=== PATIENT | female | born 1965 | race Caucasian/White ===

== ENCOUNTER → 2018-05-30 | Day surgery (SDC) | payer BC ==
[~2018-05-30] MED LIST: Lactated Ringers 1,000 ML IV SCH; Propofol 200 MG/20 ML SDV IV ONE
--- NOTE | 2018-05-30 10:51 | OR ---
DATE OF OPERATION: 05/30/2018 PREOPERATIVE DIAGNOSIS: FOLLOWUP POLYPS. POSTOPERATIVE DIAGNOSIS: FOLLOWUP POLYPS. SURGEON: Edwin Tran MD PROCEDURE: FULL-LENGTH COLONOSCOPY WITH COLD FORCEPS POLYP REMOVAL X1. ANESTHESIA: MAC via [employer]. COMPLICATIONS: None. SPECIMEN: Hyperplastic polyp, distal sigmoid colon. FINDINGS: 1. Full-length colonoscopy. 2. Small flat, likely hyperplastic polyp, distal sigmoid colon. RECOMMENDATIONS: Followup colonoscopy in 5 years pending path report. INDICATIONS: The patient has a prior history of colonoscopy with polyps being removed. She is due for a 5-year followup scope. DESCRIPTION OF PROCEDURE: The patient was prepped and draped, placed in the left lateral decubitus position. A lubricated Olympus colonoscope was inserted and easily advanced to the cecum. Direct visualization of the ileocecal valve and appendiceal orifice was accomplished. The bowel prep was fine. Upon withdrawal of the scope, throughout the cecum, right transverse and descending colon, no abnormalities were seen. The sigmoid colon essentially was benign without any signs of vascular abnormality, colitis, bleeding sites, or diverticula. In the most distal portion of the sigmoid around 25 cm, the patient had a small flat sessile polyp, looked hyperplastic, removed in its entirety with the cold forceps biopsy x1. The rectosigmoid junction and rectal vault were unremarkable. Retroflexion of scope in the rectum showed no anal lesions. Air was suctioned, the scope removed without complication. AUBREY/SHELLI /[id number]
[2018-05-30 11:13] VITALS: BP 113/52
== END ==
LOC: CC.SDS 08:50
PROVIDERS: ATTEND Family Medicine
DX: Z12.11 Encounter for screening for malignant neoplasm of colon (principal); D12.5 Benign neoplasm of sigmoid colon; F41.8 Other specified anxiety disorders; G47.00 Insomnia, unspecified; Z86.010 Personal history of colon polyps; Z79.82 Long term (current) use of aspirin; Z79.899 Other long term (current) drug therapy
CPT/HCPCS: J2704; J7120